=== PATIENT | male | born 1980 | race Caucasian/White ===

== ENCOUNTER 2020-09-15 11:15 | Emergency (ER) | payer MEDICAID ==
[~2020-09-15] VITALS: Ht 175.3 cm; Wt 68.2 kg
[~2020-09-15 11:15] MED LIST: [UNRECOGNIZED DRUG - CODE] PO
[2020-09-15 11:52] VITALS: BP 129/78
== END 2020-09-15 13:35 | disposition home or self-care (01) ==
LOC: ER 11:16
DX: K40.90 Unilateral inguinal hernia, without obstruction or gangrene, not specified as recurrent (principal); Z79.899 Other long term (current) drug therapy
CPT/HCPCS: 99282